=== PATIENT | male | born 1965 | race African-American/Black ===

== ENCOUNTER 2021-04-06 18:35 | Emergency (ER) | payer MEDICAID ==
[~2021-04-06] VITALS: Ht 170.2 cm; Wt 90.7 kg
--- NOTE | 2021-04-06 19:30 | NUR ---
PATIENT TO ER BED 14 C/O SUICIDAL IDEATION PLANS TO JUMP INTO TRAFFIC. PATIENT IS ALERT AND ORIENTED x4. PATIENT DENIES PAIN AND SHORTNESS OF BREATH. PATIENT IS CONNECTED TO THE MONITOR. PATIENT'S BELONGINGS ARE REMOVED AND PLACED INTO A LOCKED SAFE. SIDE RAILS ARE UP FOR SAFETY. SITTER AT BEDSIDE.
--- NOTE | 2021-04-06 20:00 | NUR ---
COVID SWAB COLLECTED AND SENT TO THE LAB.
[2021-04-06 20:04] LABS: BASOPHILS % (AUTO) 0.6 % (0.0-2.0); EOSINOPHILS % (AUTO) 0.6 % (0.0-6.0); HEMATOCRIT 45 % (39-51); HEMOGLOBIN 15.1 g/dL (13.5-17.5); LYMPHOCYTES % (AUTO) 30.1 % (20.0-44.0); MEAN CORPUSCULAR HGB CONC 34 g/dl (31.0-36.0); MEAN CORPUSCULAR VOLUME 95 fL (80-96); MONOCYTES # (AUTO) 0.3 K/uL (0.1-1.30); MONOCYTES % (AUTO) 4.7 % (2.0-12.0); NEUTROPHILS # (AUTO) 4.3 K/uL (1.8-8.9); PLATELET COUNT (AUTO) 209 K/uL (150-450); RED BLOOD CELL COUNT(AUTO) 4.71 MIL/uL (4.5-6.0); WHITE BLOOD COUNT (AUTO) 6.7 K/uL (4.3-11.0)
[2021-04-06 20:15] LABS: CALCIUM, SERUM 8.5 mg/dL (8.5-10.1); CARBON DIOXIDE 26 mmol/L (21-32); CHLORIDE 101 mmol/L (98-107); CREATININE 0.9 mg/dL (0.6-1.3); GLUCOSE 78 mg/dL (74-106); POTASSIUM 3.8 mmol/L (3.5-5.1); SODIUM SERUM 136 mmol/L (136-145); UREA NITROGEN, BLOOD 15 mg/dL (7-18)
[2021-04-06 20:20] LABS: ALANINE AMINOTRANSFERASE 27 U/L (12-78); ALBUMIN 3.8 g/dL (3.4-5.0); ALCOHOL, BLOOD 48 mg/dL (0-0); ALKALINE PHOSPHATASE 69 U/L (46-116); ASPARTATE AMINOTRANSFERASE 19 U/L (15-37); BILIRUBIN,DIRECT 0.1 mg/dL (0.0-0.2); BILIRUBIN,TOTAL 0.4 mg/dL (0.2-1.0); TOTAL PROTEIN, SERUM 7.1 g/dL (6.4-8.2)
[2021-04-06 20:21] LABS: ACETAMINOPHEN < 2 ug/ml (10-30)
[2021-04-06 21:39] LABS: BILIRUBIN,URINE NEGATIVE (NEGATIVE); COLOR,URINE YELLOW (YELLOW); LEUKOCYTE ESTERASE ,URINE NEGATIVE (NEGATIVE); NITRITE, URINE NEGATIVE (NEGATIVE); PROTEIN,URINE NEGATIVE (NEGATIVE); UGLUCOSE NEGATIVE (NEGATIVE); UROBILINOGEN,URINE 0.2 EU/dL (0.2)
--- NOTE | 2021-04-06 22:27 | NUR ---
FACESHEET AND CLINICALS FAXED TO [facility].
--- NOTE | 2021-04-07 01:05 | NUR ---
ACCEPTED BY DR. KAYE TO [facility] # FOR REPORT IS [phone] ext [phone].
--- NOTE | 2021-04-07 02:03 | NUR ---
[facility] CALLED FOR TRANSPORT. NO AVAILABLE TRANSPORT TONIGHT.
--- NOTE | 2021-04-07 07:55 | NUR ---
[facility]SPORT TO [facility], ETA [phone].
--- NOTE | 2021-04-07 08:43 | NUR ---
Report given to nurse Gruber
--- NOTE | 2021-04-07 08:44 | NUR ---
The patient is transfered to [facility] in stable condition.
[2021-04-07 08:45] VITALS: BP 144/67
== END 2021-04-07 08:45 ==
LOC: ER 18:39
DX: R45.851 Suicidal ideations (principal); Z59.0 Homelessness; Z20.822 Contact with and (suspected) exposure to COVID-19; F32.9 Major depressive disorder, single episode, unspecified
CPT/HCPCS: 36415; 80048; 80076; 80143; 80307; 80320; 81003; 85025; 87426; 99285; C9803; G0480

== ENCOUNTER 2021-04-16 20:18 | Emergency (ER) | payer MEDICAID ==
[~2021-04-16] VITALS: Ht 175.3 cm; Wt 88.5 kg
--- NOTE | 2021-04-16 20:21 | NUR ---
PT AAOX4. BIBSELF C/O DEPRESSED, SI WITH PLAN TO JUMP OFF A BUILDING. REQUESTING VOLUNTARY ADMISSION TO [facility].
--- NOTE | 2021-04-16 20:55 | NUR ---
URINE SAMPLE COLLECTED AND SENT TO LAB.
--- NOTE | 2021-04-16 21:10 | NUR ---
BLOOD DRAWN BY PILOT MANAGER.
[2021-04-16 21:13] LABS: BASOPHILS # (AUTO) 0.1 K/uL (0.0-0.2); EOSINOPHILS % (AUTO) 0.2 % (0.0-6.0); HEMATOCRIT 41 % (39-51); HEMOGLOBIN 14.1 g/dL (13.5-17.5); LYMPHOCYTES # (AUTO) 2.2 K/uL (0.8-4.8); LYMPHOCYTES % (AUTO) 21.8 % (20.0-44.0); MEAN CORPUSCULAR HGB CONC 34 g/dl (31.0-36.0); MEAN CORPUSCULAR VOLUME 95 fL (80-96); MONOCYTES # (AUTO) 0.7 K/uL (0.1-1.30); PLATELET COUNT (AUTO) 206 K/uL (150-450); RED BLOOD CELL COUNT(AUTO) 4.34 MIL/uL (4.5-6.0)
[2021-04-16 21:27] LABS: CALCIUM, SERUM 8.8 mg/dL (8.5-10.1); POTASSIUM 4.3 mmol/L (3.5-5.1)
[2021-04-16 21:31] LABS: BILIRUBIN,DIRECT 0.1 mg/dL (0.0-0.2); BILIRUBIN,TOTAL 0.2 mg/dL (0.2-1.0); TOTAL PROTEIN, SERUM 7.5 g/dL (6.4-8.2)
[2021-04-16 22:15] LABS: BILIRUBIN,URINE Negative (NEGATIVE); COLOR,URINE YELLOW (YELLOW); LEUKOCYTE ESTERASE ,URINE Negative (NEGATIVE); NITRITE, URINE Negative (NEGATIVE); PROTEIN,URINE Negative (NEGATIVE); UGLUCOSE Negative (NEGATIVE); UROBILINOGEN,URINE 0.2 EU/dL (0.2)
--- NOTE | 2021-04-16 23:12 | NUR ---
FACESHEET AND CLINICAL FAXED TO [facility] INTAKE FOR VOLUNTARY PSYCH ADMISSION.
--- NOTE | 2021-04-16 23:56 | NUR ---
FACESHEET AND CLINICAL RE-FAXED TO [facility] INTAKE FOR VOLUNTARY PSYCH ADMISSION.
--- NOTE | 2021-04-17 00:41 | NUR ---
TRANFERS INFORMATION: PT ACCEPTED AT [facility] ACCEPTING MD SCOTT PHONE NUMBER FOR REPORT EXT [phone]
--- NOTE | 2021-04-17 00:45 | NUR ---
TRANSPORT CALLED ([facility]) ETA 45-60MIN.
--- NOTE | 2021-04-17 01:28 | NUR ---
REPORT GIVEN TO LU[facility] BURNS FOR [facility]. PT WILL BE TRANSFERED TO [facility].
[2021-04-17 01:30] VITALS: BP 127/86
== END 2021-04-17 01:31 ==
LOC: ER 20:18
DX: R45.851 Suicidal ideations (principal); F32.9 Major depressive disorder, single episode, unspecified; Z91.14 Patient's other noncompliance with medication regimen; Z59.0 Homelessness; Z20.822 Contact with and (suspected) exposure to COVID-19
CPT/HCPCS: 36415; 80048; 80076; 80143; 80307; 80320; 81003; 85025; 87426; 99285; C9803; G0480